=== PATIENT | male | born 1965 | race Caucasian/White ===

== ENCOUNTER 2018-08-07 09:33 | Emergency (ER) | payer BC, OTHER ==
--- NOTE | 2018-08-07 10:58 | ED ---
General Adult HPI - General Chief complaint: Abdominal Pain Stated complaint: UPPER ABDOMINAL PAIN, LEFT FINGER NUMBNESS Time Seen by Provider: 08/07/18 10:23 Source: patient, RN notes reviewed, old records reviewed Mode of arrival: ambulatory - History of Present Illness Initial comments: This is a 33-year-old male the ER for evaluation. Patient comes in for epigastric pain and nausea. Patient has history of diabetes high cholesterol retention and heart disease. Patient coming in for evaluation regarding [place] epigastric abdominal pain possible chest pain. No shortness of breath no diaphoresis no sick contacts or travel history. No recent fevers. - Related Data Home Medications Medication Instructions Recorded Confirmed Aspirin 81 mg PO DAILY 12/06/15 08/07/18 Atorvastatin [Lipitor] 40 mg PO HS 12/06/15 08/07/18 Carvedilol [Coreg] 12.5 mg PO BID 12/06/15 08/07/18 Spironolactone [Aldactone] 25 mg PO DAILY 12/06/15 08/07/18 metFORMIN HCL [Glucophage] 500 mg PO BID 12/06/15 08/07/18 Empagliflozin [Jardiance] 25 mg PO DAILY 08/07/18 08/07/18 Ibuprofen [Motrin] 600 mg PO Q6HR PRN 08/07/18 08/07/18 Allergies Allergy/AdvReac Type Severity Reaction Status Date / Time Penicillins Allergy Unknown Verified 08/07/18 10:49 Childhood Review of Systems ROS Statement: Those systems with pertinent positive or pertinent negative responses have been documented in the HPI. ROS Other: All systems not noted in ROS Statement are negative. Past Medical History Past Medical History: Diabetes Mellitus, Hyperlipidemia, Hypertension, Myocardial Infarction ([place]) Last Myocardial Infarction Date:: 01/2007 History of Any Multi-Drug Resistant Organisms: None Reported Past Surgical History: Orthopedic Surgery Additional Past Surgical History / Comment(s): RIGHT WRIST, RIGHT SHOULDER, RIGHT ANKLE, COLONOSCOPY Past Anesthesia/Blood Transfusion Reactions: No Reported Reaction Past Psychological History: No Psychological Hx Reported Smoking Status: Current every day smoker Past Alcohol Use History: Occasional Past Drug Use History: None Reported - Past Family History Mother Family Medical History: Deep Vein Thrombosis (DVT) General Exam General appearance: alert, in no apparent distress Head exam: Present: atraumatic, normocephalic, normal inspection Eye exam: Present: normal appearance, PERRL, EOMI. Absent: scleral icterus, conjunctival injection, periorbital swelling ENT exam: Present: normal exam, mucous membranes moist Neck exam: Present: normal inspection. Absent: tenderness, meningismus, lymphadenopathy Respiratory exam: Present: normal lung sounds bilaterally. Absent: respiratory distress, wheezes, rales, rhonchi, stridor Cardiovascular Exam: Present: regular rate, normal rhythm, normal heart sounds. Absent: systolic murmur, diastolic murmur, rubs, gallop, clicks GI/Abdominal exam: Present: soft, normal bowel sounds. Absent: distended, tenderness, guarding, rebound, rigid Extremities exam: Present: normal inspection, full ROM, normal capillary refill. Absent: tenderness, pedal edema, joint swelling, calf tenderness Back exam: Present: normal inspection Neurological exam: Present: alert, oriented X3, CN II-XII intact Psychiatric exam: Present: normal affect, normal mood Skin exam: Present: warm, dry, intact, normal color. Absent: rash Course Vital Signs 08/07/18 08/07/18 10:08 11:24 Temperature 98.5 F Pulse Rate 65 62 Respiratory 18 16 Rate Blood Pressure 123/76 132/59 O2 Sat by Pulse 99 100 Oximetry - Reevaluation(s) Reevaluation #1: 08/07/18 11:53 Record is reviewed, no prior history or EKG here done at this hospital. Patient does have continued chest pain EKG Findings - EKG Comments: EKG Findings:: EKG shows normal sinus rhythm rate of 60, ND 180, QRS 02, QTc 404 , extensive T-wave inversion. Repeat. EKG shows normal sinus rhythm rate of 60 , ND 150, QRS 96, QTc 422, no morphological changes Medical Decision Making - Medical Decision Making 83 male positive chest pain, presents today with chest pain and EKG changes including left lead T-wave inversion. Patient be admitted for cardiac observation and treatment - Lab Data Result diagrams: 08/07/18 10:49 08/07/18 10:49 Lab Results 08/07/18 08/07/18 08/07/18 Range/Units 10:49 10:49 10:49 WBC 13.5 H (3.8-10.6) k/uL RBC 4.46 (4.30-5.90) m/uL Hgb 14.6 (13.0-17.5) gm/dL Hct 42.8 (39.0-53.0) % MCV 95.8 (80.0-100.0) fL MCH 32.8 (25.0-35.0) pg MCHC 34.2 (31.0-37.0) g/dL RDW 12.9 (11.5-15.5) % Plt Count 138 L (150-450) k/uL Neutrophils % 73 % Lymphocytes % 11 % Monocytes % 4 % Eosinophils % 10 % Basophils % 0 % Neutrophils # 9.9 H (1.3-7.7) k/uL Lymphocytes # 1.4 (1.0-4.8) k/uL Monocytes # 0.6 (0-1.0) k/uL Eosinophils # 1.4 H (0-0.7) k/uL Basophils # 0.0 (0-0.2) k/uL PT (9.0-12.0) sec INR (<1.2) APTT (22.0-30.0) sec Sodium 138 (137-145) mmol/L Potassium 4.7 (3.5-5.1) mmol/L Chloride 108 H (98-107) mmol/L Carbon Dioxide 21 L (22-30) mmol/L Anion Gap 9 mmol/L BUN 18 (9-20) mg/dL Creatinine 0.87 (0.66-1.25) mg/dL Est GFR (CKD-EPI)AfAm >90 (>60 ml/min/1.73 sqM) Est GFR (CKD-EPI)NonAf >90 (>60 ml/min/1.73 sqM) Glucose 122 H (74-99) mg/dL Calcium 9.3 (8.4-10.2) mg/dL Magnesium 2.0 (1.6-2.3) mg/dL Total Bilirubin 0.6 (0.2-1.3) mg/dL AST 24 (17-59) U/L ALT 35 (21-72) U/L Alkaline Phosphatase 85 (38-126) U/L Total Creatine Kinase 68 (55-170) U/L CK-MB (CK-2) 1.1 (0.0-2.4) ng/mL CK-MB (CK-2) Rel Index 1.6 Troponin I <0.012 (0.000-0.034) ng/mL Total Protein 7.3 (6.3-8.2) g/dL Albumin 4.3 (3.5-5.0) g/dL Lipase 141 (23-300) U/L 08/07/18 Range/Units 10:49 WBC (3.8-10.6) k/uL RBC (4.30-5.90) m/uL Hgb (13.0-17.5) gm/dL Hct (39.0-53.0) % MCV (80.0-100.0) fL MCH (25.0-35.0) pg MCHC (31.0-37.0) g/dL RDW (11.5-15.5) % Plt Count (150-450) k/uL Neutrophils % % Lymphocytes % % Monocytes % % Eosinophils % % Basophils % % Neutrophils # (1.3-7.7) k/uL Lymphocytes # (1.0-4.8) k/uL Monocytes # (0-1.0) k/uL Eosinophils # (0-0.7) k/uL Basophils # (0-0.2) k/uL PT 10.4 (9.0-12.0) sec INR 1.1 (<1.2) APTT 25.3 (22.0-30.0) sec Sodium (137-145) mmol/L Potassium (3.5-5.1) mmol/L Chloride (98-107) mmol/L Carbon Dioxide (22-30) mmol/L Anion Gap mmol/L BUN (9-20) mg/dL Creatinine (0.66-1.25) mg/dL Est GFR (CKD-EPI)AfAm (>60 ml/min/1.73 sqM) Est GFR (CKD-EPI)NonAf (>60 ml/min/1.73 sqM) Glucose (74-99) mg/dL Calcium (8.4-10.2) mg/dL Magnesium (1.6-2.3) mg/dL Total Bilirubin (0.2-1.3) mg/dL AST (17-59) U/L ALT (21-72) U/L Alkaline Phosphatase (38-126) U/L Total Creatine Kinase (55-170) U/L CK-MB (CK-2) (0.0-2.4) ng/mL CK-MB (CK-2) Rel Index Troponin I (0.000-0.034) ng/mL Total Protein (6.3-8.2) g/dL Albumin (3.5-5.0) g/dL Lipase (23-300) U/L - Radiology Data Radiology results: report reviewed (Chest x-rays negative for acute disease), image reviewed Critical Care Time Critical Care Time: Yes Total Critical Care Time: 31 Disposition Clinical Impression: Chest pain Disposition: ADMITTED IP TO THIS HOSP Condition: Fair Is patient prescribed a controlled substance at d/c from ED?: No Referrals: [facility],Clinic [Primary Care Provider] - 1-2 days
[2018-08-07 11:00] LABS: Basophils % (A) 0 %; Eosinophils # (A) 1.4 k/uL (0-0.7); Eosinophils % (A) 10 %; HCT 42.8 % (39.0-53.0); HGB 14.6 gm/dL (13.0-17.5); Lymphocytes # (A) 1.4 k/uL (1.0-4.8); Lymphocytes % (A) 11 %; MCH 32.8 pg (25.0-35.0); MCHC 34.2 g/dL (31.0-37.0); MCV 95.8 fL (80.0-100.0); Mean Platelet Volume 8.9; Monocytes # (A) 0.6 k/uL (0-1.0); Monocytes % (A) 4 %; Neutrophils # (A) 9.9 k/uL (1.3-7.7); Neutrophils % (A) 73 %; Platelet Count 138 k/uL (150-450); RBC 4.46 m/uL (4.30-5.90); RDW 12.9 % (11.5-15.5); WBC 13.5 k/uL (3.8-10.6)
[2018-08-07 11:13] LABS: ALT 35 U/L (21-72); AST 24 U/L (17-59); Albumin 4.3 g/dL (3.5-5.0); Alkaline Phosphatase 85 U/L (38-126); Anion Gap 9 mmol/L; Blood Urea Nitrogen 18 mg/dL (9-20); Calcium 9.3 mg/dL (8.4-10.2); Carbon Dioxide 21 mmol/L (22-30); Chloride 108 mmol/L (98-107); Glucose 122 mg/dL (74-99); Lipase 141 U/L (23-300); Potassium 4.7 mmol/L (3.5-5.1); Sodium 138 mmol/L (137-145); Total Bilirubin 0.6 mg/dL (0.2-1.3); Total Protein 7.3 g/dL (6.3-8.2)
[2018-08-07 11:23] LABS: INR 1.1 (<1.2); Partial Thromboplastin Time 25.3 sec (22.0-30.0); Prothrombin Time 10.4 sec (9.0-12.0)
[2018-08-07 11:25] LABS: Creatine Kinase 68 U/L (55-170)
[2018-08-07 11:36] LABS: Creatine Kinase MB 1.1 ng/mL (0.0-2.4); Troponin I <0.012 ng/mL (0.000-0.034)
--- NOTE | 2018-08-07 11:43 | XR ---
EXAMINATION TYPE: XR chest 2V DATE OF EXAM: 08/07/2018 COMPARISON: 11/20/2011 HISTORY: 53-year-old male with chest pain TECHNIQUE: PA and lateral views FINDINGS: The cardiomediastinal silhouette, aorta, and pulmonary vasculature are within normal limits. Lungs an d pleural spaces are clear. Left anterior chest wall AICD generator with right atrial and right ventr icular leads. IMPRESSION: No acute cardiopulmonary process.
[2018-08-07] MEDS ORDERED: ASPIRIN 81 MG PO STA (11:50)
[2018-08-07] MEDS ORDERED: HEPARIN SODIUM,PORCINE 5,000 UNIT/ML 1 ML VIAL IV ONE (11:50)
[2018-08-07] MEDS ORDERED: HEPARIN SODIUM,PORCINE 5,000 UNIT/ML 1 ML VIAL IV PRN (11:50)
[2018-08-07] MEDS ORDERED: NITROGLYCERIN SL TABS 0.4 MG TAB SUBLINGUAL PRN (11:50)
[2018-08-07] MEDS ORDERED: HEPARIN SOD,PORK IN 0.45% NACL 25,000 UNIT in 0.45% NACL 1 500ML.BAG IV SCH (12:00)
[2018-08-07 14:26] VITALS: BP 124/68; PULSE 78; RESP 18; TEMP 98.2
[2018-08-07] MEDS ORDERED: METOPROLOL TARTRATE 50 MG TAB PO SCH (21:00)
[2018-08-08] MEDS ORDERED: ASPIRIN 325 MG TAB PO SCH (09:00)
== END 2018-08-07 14:19 | disposition other institution (70) ==
LOC: EC 09:33
DX: R07.9 Chest pain, unspecified (principal); R10.13 Epigastric pain; R11.0 Nausea; R20.0 Anesthesia of skin; I11.9 Hypertensive heart disease without heart failure; E11.9 Type 2 diabetes mellitus without complications; E78.5 Hyperlipidemia, unspecified; E78.00 Pure hypercholesterolemia, unspecified; I25.2 Old myocardial infarction; F17.200 Nicotine dependence, unspecified, uncomplicated; Z79.82 Long term (current) use of aspirin; Z79.84 Long term (current) use of oral hypoglycemic drugs; Z79.899 Other long term (current) drug therapy; Z88.0 Allergy status to penicillin
CPT/HCPCS: 99291; 96365; 96366; 96376; 36415; 93005; 80053; 82550; 82553; 83690; 83735; 84484; 85025; 85610; 85730; 71046; J1644 ×2

== ENCOUNTER 2019-12-16 07:58 | Emergency (ER) | payer OTHER ==
[2019-12-16] MEDS ORDERED: ASPIRIN 81 MG PO STA (08:26)
[2019-12-16 08:29] LABS: Basophils # (A) 0.1 k/uL (0-0.2); Basophils % (A) 1 %; Eosinophils # (A) 0.2 k/uL (0-0.7); Eosinophils % (A) 2 %; HGB 16.6 gm/dL (13.0-17.5); Lymphocytes # (A) 1.5 k/uL (1.0-4.8); Lymphocytes % (A) 14 %; MCH 33.3 pg (25.0-35.0); MCHC 35.4 g/dL (31.0-37.0); Mean Platelet Volume 9.7; Monocytes # (A) 0.7 k/uL (0-1.0); Monocytes % (A) 6 %; Neutrophils # (A) 7.8 k/uL (1.3-7.7); Neutrophils % (A) 75 %; Platelet Count 157 k/uL (150-450); RDW 12.4 % (11.5-15.5); WBC 10.4 k/uL (3.8-10.6)
--- NOTE | 2019-12-16 08:29 | ED ---
General Adult HPI - General Chief complaint: Chest Pain Stated complaint: CHEST PAIN Time Seen by Provider: 12/16/19 08:03 Source: patient Mode of arrival: ambulatory Limitations: no limitations - History of Present Illness Initial comments: Dictation was produced using [employer] dictation software. please excuse any grammatical, word or spelling errors. Chief Complaint: 54 yo male past medical history of myocardial infarction, coronary artery disease presents with chest pain. History of Present Illness: 54-year-old male. He has past medical history of diabetes, high cholesterol and hypertension. He has history of myocardial infar ction in 2006. Reports that at 2006 had 2 stents placed here at our facility. Patient reports that today he had a 5 second episode of substernal chest discomfort. He states that he was playing tennis earlier today when the symptoms occurred. He describes it is a substernal discomfort without rad iation. States that it occurred after a long tennis rally. Patient played for several minutes after without any return of his symptoms. Patient is asymptomatic at this time. Denies any numbness to any paresthesias. The ROS documented in this emergency department record has been reviewed and co nfirmed by me. Those systems with pertinent positive or negative responses have been documented in the HPI. All other systems are other negative and/or noncontributory. PHYSICAL EXAM: General Impression: Alert and oriented x3, not in acute distress HEENT: Normocephalic atraumatic, extra-ocular movements intact, pupils equal and reactive to light bilaterally, mucous membranes moist. Cardiovascular: Heart regular rate and rhythm, S1&S2 audible, no murmurs, rubs or gallops Chest: Lungs clear to auscultation bilaterally, no rhonchi, no wheeze, no rales Abdomen: Bowel sounds present, abdomen soft, non-tender, non-distended, no organomegaly Musculoskeletal: Pulses present and equal in all extremities, no peripheral edema Motor: no focal deficits noted Neurological: CN II-XII grossly intact, no focal motor or sensory deficits noted Skin: Intact with no visualized rashes Psych: Normal affect and mood ED course: 54-year-old male with past medical history coronary artery disease presents with atypical chest pain with typical features. Signs upon arrival are within acceptable limits. EKG shows T-wave inversions in V5 V6 which is present in EKG from August 2018. Repeat EKG performed approximate 45 minutes later shows no dynamic changes.Laboratory evaluation obtained. CBC, cardiac panel unremarkable, metabolic panel is unremarkable. First set troponins negative. Surgical and is negative. Patient observed in emergency department for several hours with no recurrence of chest pain. Patient is clear for discharge. 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 Patient understandable agreeable to plan. He received aspirin on his initial arrival. The gym program was discussed. All questions answered. Patient clear for discharge. EKG interpretation: Ventricular rate 82, normal sinus rhythm, MI interval 184, QS 110, QTc 404. No MI prolongation, no QTC prolongation, no ST or T-wave zia nges noted. EKG compared to 08/07/2018 showing no changes. Overall, this EKG is unremarkable - Related Data Home Medications Medication Instructions Recorded Confirmed Aspirin 81 mg PO DAILY 12/06/15 12/16/19 Atorvastatin [Lipitor] 40 mg PO HS 12/06/15 12/16/19 Carvedilol [Coreg] 12.5 mg PO BID 12/06/15 12/16/19 Spironolactone [Aldactone] 25 mg PO DAILY 12/06/15 12/16/19 metFORMIN HCL [Glucophage] 500 mg PO BID 12/06/15 12/16/19 Empagliflozin [Jardiance] 25 mg PO DAILY 08/07/18 12/16/19 Ibuprofen [Motrin] 600 mg PO Q8HR PRN 12/16/19 12/16/19 Allergies Allergy/AdvReac Type Severity Reaction Status Date / Time Penicillins Allergy Unknown Verified 12/16/19 09:47 Childhood Review of Systems ROS Statement: Those systems with pertinent positive or pertinent negative responses have been documented in the HPI. ROS Other: All systems not noted in ROS Statement are negative. Past Medical History Past Medical History: Diabetes Mellitus, Hyperlipidemia, Hypertension, Myocardial Infarction ([place]) Last Myocardial Infarction Date:: 01/2007 History of Any Multi-Drug Resistant Organisms: None Reported Past Surgical History: Heart Catheterization With Stent, Orthopedic Surgery Additional Past Surgical History / Comment(s): RIGHT WRIST, RIGHT SHOULDER, RIGHT ANKLE, COLONOSCOPY Past Anesthesia/Blood Transfusion Reactions: No Reported Reaction Past Psychological History: No Psychological Hx Reported Smoking Status: Current every day smoker Past Alcohol Use History: Occasional Past Drug Use History: None Reported - Past Family History Mother Family Medical History: Deep Vein Thrombosis (DVT) General Exam Limitations: no limitations Course Vital Signs 12/16/19 08:00 Temperature 97.9 F Pulse Rate 84 Respiratory 19 Rate Blood Pressure 126/83 O2 Sat by Pulse 99 Oximetry Medical Decision Making - Lab Data Result diagrams: 12/16/19 08:12 12/16/19 08:11 Lab Results 12/16/19 12/16/19 12/16/19 Range/Units 08:11 08:11 08:11 WBC (3.8-10.6) k/uL RBC (4.30-5.90) m/uL Hgb (13.0-17.5) gm/dL Hct (39.0-53.0) % MCV (80.0-100.0) fL MCH (25.0-35.0) pg MCHC (31.0-37.0) g/dL RDW (11.5-15.5) % Plt Count (150-450) k/uL Neutrophils % % Lymphocytes % % Monocytes % % Eosinophils % % Basophils % % Neutrophils # (1.3-7.7) k/uL Lymphocytes # (1.0-4.8) k/uL Monocytes # (0-1.0) k/uL Eosinophils # (0-0.7) k/uL Basophils # (0-0.2) k/uL PT 10.2 (9.0-12.0) sec INR 1.0 (<1.2) APTT 24.8 (22.0-30.0) sec Sodium 139 (137-145) mmol/L Potassium 4.3 (3.5-5.1) mmol/L Chloride 105 (98-107) mmol/L Carbon Dioxide 21 L (22-30) mmol/L Anion Gap 13 mmol/L BUN 18 (9-20) mg/dL Creatinine 0.97 (0.66-1.25) mg/dL Est GFR (CKD-EPI)AfAm >90 (>60 ml/min/1.73 sqM) Est GFR (CKD-EPI)NonAf 88 (>60 ml/min/1.73 sqM) Glucose 184 H (74-99) mg/dL Calcium 9.8 (8.4-10.2) mg/dL Magnesium 2.0 (1.6-2.3) mg/dL Total Bilirubin 0.7 (0.2-1.3) mg/dL AST 31 (17-59) U/L ALT 33 (4-49) U/L Alkaline Phosphatase 94 (38-126) U/L Troponin I <0.012 (0.000-0.034) ng/mL Total Protein 7.6 (6.3-8.2) g/dL Albumin 4.7 (3.5-5.0) g/dL 12/16/19 12/16/19 Range/Units 08:12 11:23 WBC 10.4 (3.8-10.6) k/uL RBC 5.00 (4.30-5.90) m/uL Hgb 16.6 (13.0-17.5) gm/dL Hct 47.0 (39.0-53.0) % MCV 94.0 (80.0-100.0) fL MCH 33.3 (25.0-35.0) pg MCHC 35.4 (31.0-37.0) g/dL RDW 12.4 (11.5-15.5) % Plt Count 157 (150-450) k/uL Neutrophils % 75 % Lymphocytes % 14 % Monocytes % 6 % Eosinophils % 2 % Basophils % 1 % Neutrophils # 7.8 H (1.3-7.7) k/uL Lymphocytes # 1.5 (1.0-4.8) k/uL Monocytes # 0.7 (0-1.0) k/uL Eosinophils # 0.2 (0-0.7) k/uL Basophils # 0.1 (0-0.2) k/uL PT (9.0-12.0) sec INR (<1.2) APTT (22.0-30.0) sec Sodium (137-145) mmol/L Potassium (3.5-5.1) mmol/L Chloride (98-107) mmol/L Carbon Dioxide (22-30) mmol/L Anion Gap mmol/L BUN (9-20) mg/dL Creatinine (0.66-1.25) mg/dL Est GFR (CKD-EPI)AfAm (>60 ml/min/1.73 sqM) Est GFR (CKD-EPI)NonAf (>60 ml/min/1.73 sqM) Glucose (74-99) mg/dL Calcium (8.4-10.2) mg/dL Magnesium (1.6-2.3) mg/dL Total Bilirubin (0.2-1.3) mg/dL AST (17-59) U/L ALT (4-49) U/L Alkaline Phosphatase (38-126) U/L Troponin I <0.012 (0.000-0.034) ng/mL Total Protein (6.3-8.2) g/dL Albumin (3.5-5.0) g/dL Disposition Clinical Impression: Chest pain Disposition: HOME SELF-CARE Condition: Good Instructions (If sedation given, give patient instructions): Chest Pain (ED) Is patient prescribed a controlled substance at d/c from ED?: No Referrals: [facility],Cl[facility] [Primary Care Provider] - 1-2 days Time of Disposition: 12:30
[2019-12-16 08:41] LABS: Partial Thromboplastin Time 24.8 sec (22.0-30.0); Prothrombin Time 10.2 sec (9.0-12.0)
--- NOTE | 2019-12-16 08:44 | XR ---
EXAMINATION TYPE: XR chest 2V DATE OF EXAM: 12/16/2019 COMPARISON: Chest x-ray August 07, 2018. HISTORY: Dull chest pain. TECHNIQUE: Frontal and lateral views of the chest are obtained. FINDINGS: There is some chronic underlying emphysematous change without suspicious focal air space opacity, pleural effusion, or pneumothorax seen. The cardiac silhouette size remains within normal limits with dual lead pacemaker/AICD present. Slight mottled appearance to left rock l head similar to prior, correlate clinically for pain localized to this level. Primary or metastatic bone lesion cannot be excluded. IMPRESSION: No acute cardiopulmonary process. No significant change from prior.
[2019-12-16 09:01] LABS: ALT 33 U/L (4-49); AST 31 U/L (17-59); African American GFR (CKD) >90 (>60 ml/min/1.73 sqM); Albumin 4.7 g/dL (3.5-5.0); Alkaline Phosphatase 94 U/L (38-126); Anion Gap 13 mmol/L; Blood Urea Nitrogen 18 mg/dL (9-20); Calcium 9.8 mg/dL (8.4-10.2); Carbon Dioxide 21 mmol/L (22-30); Chloride 105 mmol/L (98-107); Glucose 184 mg/dL (74-99); Non-African American GFR(CKD) 88 (>60 ml/min/1.73 sqM); Potassium 4.3 mmol/L (3.5-5.1); Sodium 139 mmol/L (137-145); Total Bilirubin 0.7 mg/dL (0.2-1.3); Total Protein 7.6 g/dL (6.3-8.2)
[2019-12-16 12:41] VITALS: BP 115/77; PULSE 66; RESP 18; TEMP 97.4
== END 2019-12-16 12:39 | disposition home or self-care (01) ==
LOC: EC 07:58
DX: R07.89 Other chest pain (principal); R94.31 Abnormal electrocardiogram [ECG] [EKG]; E11.9 Type 2 diabetes mellitus without complications; E78.5 Hyperlipidemia, unspecified; I10 Essential (primary) hypertension; I25.10 Atherosclerotic heart disease of native coronary artery without angina pectoris; I25.2 Old myocardial infarction; F17.200 Nicotine dependence, unspecified, uncomplicated; Z88.0 Allergy status to penicillin; Z79.82 Long term (current) use of aspirin; Z79.84 Long term (current) use of oral hypoglycemic drugs; Z79.899 Other long term (current) drug therapy; Z95.5 Presence of coronary angioplasty implant and graft
CPT/HCPCS: 36415; 71046; 80053; 83735; 84484; 85025; 85610; 85730; 93005; 99285

== ENCOUNTER 2024-02-18 12:59 | Day surgery (SDC) | payer OTHER ==
[2024-02-12 16:22] VITALS: BMI 29.1
[~2024-02-18 12:59] MED LIST: SODIUM CHLORIDE 0.9% 1,000 ML IV SCH
[2024-02-18 13:42] VITALS: BP 125/76; PULSE 72; RESP 16; TEMP 97.9
[2024-02-18 13:56] LABS: African American GFR (CKD) >90 (>60 ml/min/1.73 sqM); Anion Gap 9 mmol/L; Blood Urea Nitrogen 19 mg/dL (9-20); Calcium 9.3 mg/dL (8.4-10.2); Carbon Dioxide 23 mmol/L (22-30); Chloride 105 mmol/L (98-107); Glucose 136 mg/dL (74-99); Non-African American GFR(CKD) 78 (>60 ml/min/1.73 sqM); Potassium 4.1 mmol/L (3.5-5.1); Sodium 137 mmol/L (137-145)
[2024-02-18] MEDS: SODIUM CHLORIDE 0.9% 500 ML 500 ML IV ONE (14:24)
[2024-02-18] MEDS: IOPAMIDOL-370 100ML BTL INJ ONE (14:33)
--- NOTE | 2024-02-18 15:57 | P.EPPROC ---
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
== END 2024-02-18 15:03 | disposition home or self-care (01) ==
LOC: CATHEP 12:59
PROVIDERS: ATTEND Internal Medicine Clinical Cardiac Electrophysiology
DX: T82.118A Breakdown (mechanical) of other cardiac electronic device, initial encounter (principal); I42.8 Other cardiomyopathies; I25.10 Atherosclerotic heart disease of native coronary artery without angina pectoris; I25.2 Old myocardial infarction; E78.5 Hyperlipidemia, unspecified; I11.0 Hypertensive heart disease with heart failure; I50.9 Heart failure, unspecified; E66.9 Obesity, unspecified; Z95.0 Presence of cardiac pacemaker; Z79.82 Long term (current) use of aspirin; Z79.84 Long term (current) use of oral hypoglycemic drugs; Z79.899 Other long term (current) drug therapy; Y83.8 Other surgical procedures as the cause of abnormal reaction of the patient, or of later complication, without mention of misadventure at the time of the procedure
CPT/HCPCS: 36005; 75820; 80048; Q9967

== ENCOUNTER 2024-03-24 10:41 | Day surgery (SDC) | payer OTHER ==
[2024-03-20 12:11] VITALS: BMI 29.1
[2024-03-24] MEDS: SODIUM CHLORIDE 0.9% 500 ML 500 ML IV ONE (11:20)
[2024-03-24 11:27] LABS: Glucose,Whole Blood 150 mg/dL (70-110)
[2024-03-24 12:00] VITALS: TEMP 97.7
[2024-03-24] MEDS ORDERED: LIDOCAINE 1% INJ 10MG/ML (20 ML MDV) ONE ×2 (12:16→12:33)
[2024-03-24] MEDS ORDERED: MIDAZOLAM 2 MG/2 ML VIAL ONE (12:33)
[2024-03-24] MEDS: IV FLUID CONTINUATION 400 ML IV ONE (12:33)
[2024-03-24] MEDS ORDERED: PROPOFOL 10 MG/ML 20 ML VIAL IV ONE (12:33)
[2024-03-24] MEDS ORDERED: fentaNYL (PF) 50 MCG/ML 2 ML AMP ONE (12:33)
[2024-03-24] MEDS: IV FLUID CONTINUATION 950 ML IV ONE (12:59)
[2024-03-24] MEDS: SODIUM CHLORIDE 0.9% 500 ML 400 ML IV ONE (12:59)
[2024-03-24] MEDS: ceFAZolin 1 GM in SODIUM CHLORIDE 0.9% IRRIG BTL 250 ML IRRIGATION PRN (13:16)
[2024-03-24] MEDS: LIDOCAINE 1% INJ 10MG/ML (20 ML MDV) SQ ONE ×2 (13:24→13:25)
[2024-03-24] MEDS: VANCOMYCIN 1,250 MG in SODIUM CHLORIDE 0.9% 250 ML IVPB ONE (14:42)
--- NOTE | 2024-03-24 14:56 | P.EPPROC ---
- EP Procedure Note Electrophysiology Procedure Note: Diagnosis Cardiomyopathy, chronic, ischemic, old [place] Class II CHF, on guideline directed medical treatment Bradycardia, status post dual-chamber ICD Dual-chamber ICD, [employer] device at STEPHANIE Elevated high-voltage impedances between 130-150 Plan Procedure: Dual-chamber ICD implantation for management of risk of sudden cardiac /bradycardia Result: Dual chamber ICD generator change Atrial lead: Impedance 380 ohms. 2 4, P waves 2.4 mV and pacing threshold 1 V at 0.4 ms RV ICD lead: The old single coil ICD lead was interrogated with a new dual- chamber ICD device before implanting a new lead R waves 7.7 0.6 mV, RV pacing impedance 342 ohms, threshold 1.75 V at 0.5 ms, chronically increased RV defibrillation impedance 95 ohms High-voltage impedance ranged between 96-100 ohms Therefore since the high-voltage impedance was within normal range, a new ICD lead was not implanted. 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 Charge time was 1.8 seconds, no post shock ties and the high-voltage impedance was 87 ohms DFT was performed twice. Once at least sensitivity and the other at nominal sensitivity During both testing episodes, the high-voltage impedance was stable of around 97 ohms Therefore a new ICD lead was not implanted Procedure details: Patient was brought to the EP lab in a fasting state. Written informed consent was obtained prior to the procedure. Options, pros and cons, benefits and risks and complications discussed with patient in detail prior to the procedure (shared decision making). Importance of continuing medical treatment emphasized. Alternatives discussed. Patient would like to proceed with dual-chamber ICD implant. The left pectoral area was prepped and draped as a protocol. IV antibiotics administered 1% lidocaine was used for local anesthesia. A 4 cm incision was made parallel to the deltopectoral groove, about 1.5 cm medial to it. The incision was carried down to the level of the pectoralis muscle and the subfascial pocket was entered. This was a heavily calcified pocket. The capsule was subtotally excised very carefully while slowly freeing the leads from the heavily fibrotic and calcific capsule. Following that the leads were inspected. No insulation break was noted The leads were then tested several times and lead function was stable A [employer] dual-chamber ICD was connected to the leads. The high-voltage impedance was 97-100 ohms The thresholds and pacing impedances were stable Atrial lead function was normal This is a long procedure on account of a heavily calcified capsule with thick fibrotic tissue. This was subtotally excised, and the leads were very carefully freed from this capsule inspected and interrogated thereafter
[2024-03-24 15:44] VITALS: RESP 16
[2024-03-24 16:28] VITALS: BP 135/60; PULSE 70
== END 2024-03-24 16:40 | disposition home or self-care (01) ==
LOC: CATHEP 10:41
PROVIDERS: ATTEND Internal Medicine Clinical Cardiac Electrophysiology
DX: I42.9 Cardiomyopathy, unspecified (principal); I25.2 Old myocardial infarction; I50.9 Heart failure, unspecified; I25.10 Atherosclerotic heart disease of native coronary artery without angina pectoris; E66.9 Obesity, unspecified; E11.9 Type 2 diabetes mellitus without complications; E78.5 Hyperlipidemia, unspecified; Z79.82 Long term (current) use of aspirin; Z79.84 Long term (current) use of oral hypoglycemic drugs; Z79.899 Other long term (current) drug therapy
CPT/HCPCS: 93641; 33263; C1721; C1892; C1769; J2250; J3370; J0690; J2001; J3010; J2704